=== PATIENT | male | born 1955 | race Caucasian/White ===

== ENCOUNTER 2016-05-16 05:44 | Outpatient (CLI) | payer OTHER ==
[~2016-05-16] VITALS: Ht 177.8 cm; Wt 86.2 kg
== END 2016-05-16 14:34 ==
LOC: PREOP 05:44
PROVIDERS: ATTEND Internal Medicine
DX: Z01.818 Encounter for other preprocedural examination (principal); Z12.11 Encounter for screening for malignant neoplasm of colon

== ENCOUNTER 2016-05-18 07:05 | Day surgery (SDC) | payer OTHER ==
[~2016-05-18] VITALS: Ht 177.8 cm; Wt 86.2 kg
[~2016-05-18 07:05] MED LIST: 1/2 NS IV SOLUTION 1,000 ML IV ONE
--- OUTSIDE RECORDS SUMMARY | 2016-05-18 07:09 | XMS REPORT | Continuity of Care Document ---
Author Author [facility] Organization [facility] Address Unknown Phone Unavailable Care Team Providers Care Membership Manager Name Role Phone ABRAHAM GREEN MD PCP Insurance Providers Payer Name Policy Number Subscriber Name Relationship [employer] [id number] Iain Kong S 18 Self / Same As Patient Advance Directives Directive Response Recorded Date/Time Advance Directives No 05/16/16 2:30pm Resuscitation Status Full Code 05/16/16 2:30pm Problems No problem information available. Medications No known medications. Social History Social History Problem Response Recorded Date/Time Alcohol Use Rarely Uses 05/16/2016 2:30pm Recreational Drug Use No 05/16/2016 2:30pm Recent Foreign Travel No 05/16/2016 2:30pm Recent Infectious Disease Exposure No 05/16/2016 2:30pm Smoking Status Never a Smoker 05/16/2016 2:30pm Recent Hopitalizations No 05/16/2016 2:30pm Query Response Start Date Stop Date Smoking Status Never a Smoker Hospital Discharge Instructions No hospital discharge instructions. Plan of Care Discharge Date 05/16/16 2:34pm Prescriptions See Medication Section Functional Status No functional status results. Allergies, Adverse Reactions, Alerts No known allergies. Immunizations No immunization records. Vital Signs Acute Vital Signs Vital Response Date/Time Height (Feet) 5 feet 05/16/2016 2:29pm Height (Inches) 10.00 inches 05/16/2016 2:29pm Height (Calculated Centimeters) 177.353902 cm 05/16/2016 2:29pm Weight (Pounds) 190 pounds 05/16/2016 2:29pm Weight (Ounces) 0.0 oz 05/16/2016 2:29pm Weight (Calculated Grams) 89183.55 gm 05/16/2016 2:29pm Weight (Calculated Kilograms) 86.302272 kilograms 05/16/2016 2:29pm Calculated BMI 27.3 05/16/2016 2:29pm Results No known relevant diagnostic tests, laboratory data and/or discharge summary. Procedures No known history of procedures. Encounters Encounter Location Arrival/Admit Date Discharge/Depart Date Attending Provider Registered Clinic [facility] 05/16/16 5:44am ABRAHAM GREEN MD
--- OUTSIDE RECORDS SUMMARY | 2016-05-18 07:09 | XMS REPORT | Continuity of Care Document ---
Author Author [facility] Organization [facility] Address Unknown Phone Unavailable Care Team Providers Care Zigzag Machine Operator Name Role Phone ABRAHAM GREEN MD PCP Insurance Providers Payer Name Policy Number Subscriber Name Relationship [employer] [id number] Iain Kong S 18 Self / Same [...] 10.00 inches 05/16/2016 2:29pm Height (Calculated Centimeters) 177.139587 cm 05/16/2016 2:29pm Weight (Pounds) 190 pounds 05/16/2016 2:29pm Weight (Ounces) 0.0 oz 05/16/2016 2:29pm Weight (Calculated Grams) 07075.55 gm 05/16/2016 2:29pm Weight (Calculated Kilograms) 86.912152 kilograms 05/16/2016 2:29pm Calculated BMI 27.3 05/16/2016 2:29pm Results No known relevant diagnostic tests, laboratory data and/or discharge summary. Procedures No known history of procedures. Encounters Encounter Location Arrival/Admit Date Discharge/Depart Date Attending Provider Registered Clinic [facility] 05/16/16 5:44am ABRAHAM GREEN MD
--- NOTE | 2016-05-18 07:29 | HISTORY AND PHYSICAL ---
DATE OF ADMISSION: 05/18/2016 DICTATING PHYSICIAN: Dr. Hurd COLONOSCOPY HISTORY AND PHYSICAL: Mr. Kong is a 60-year-old white male seen for follow-up of hyperlipidemia. He had been on Crestor for some time, but developed the onset of lower extremity fatigue and myalgia that persisted for several months and did not cease until he discontinue Crestor. His family history is pertinent for colon cancer in this case being his father diagnosed in his early 70s. It has been 5 years since his last screening colonoscopy at which time no abnormalities were noted. He reports that he is back to normal in regards to energy level and leg strength after discontinuing Crestor. PHYSICAL EXAMINATION: Reveals a well-appearing white male in no acute distress. VITAL SIGNS: Blood pressure was 132/80. CHEST: Clear. CV: Revealed a regular rate and rhythm without murmur, S3 or S4. ABDOMEN: Soft, supple without masses, organomegaly or tenderness. ASSESSMENT: Myalgia likely statin induced. We will have the patient return in 6 months for a PIM-1 and a PSA for screening purposes. I expect his cholesterol levels will be significantly elevated and we will discuss initiating pravastatin at that time if this turns out to be the case. He has no known history of atherosclerotic vascular disease, this is for primary prevention. The patient was set-up for screening colonoscopy deemed to be of higher than average risk due to a positive family history for colon cancer as noted above. He is set for the 18 May. Prep instructions with the [facility] prep kit were given and questions were answered. Job ID: [id number] Dictated Date: 04/19/2016 20:06:00 Nutrition Services Assistant Date: 04/20/2016 08:18:00/alisa DHILLON
[2016-05-18] MEDS ORDERED: 1/2 NS IV SOLUTION 1,000 ML IV STA (07:42)
[2016-05-18 07:44] VITALS: BP 145/107
[2016-05-18] MEDS ORDERED: LIDOCAINE JELLY 2% (XYLOCAINE) 5 ML TUBE MM PRN (07:45)
[2016-05-18] MEDS ORDERED: MIDAZOLAM 2 MG/2 ML (VERSED) VIAL IVP PRN (07:45)
[2016-05-18] MEDS ORDERED: NALOXONE 0.4 MG/ML 1 ML (NARCAN) VIAL IVP PRN (07:45)
[2016-05-18] MEDS ORDERED: FLUMAZENIL (ROMAZICON) 0.1 MG/ML 5 ML VIAL INJ PRN (07:45)
[2016-05-18] MEDS ORDERED: LIDOCAINE JELLY 2% (XYLOCAINE) 5 ML TUBE ONE (07:48)
[2016-05-18] MEDS ORDERED: fentaNYL INJECTION 100 MCG/2 ML AMP ONE (07:48)
[2016-05-18] MEDS ORDERED: MIDAZOLAM 2 MG/2 ML (VERSED) VIAL ONE ×2 (07:48)
--- NOTE | 2016-05-18 08:01 | Pre-Op Note & Conscious Sedat ---
Pre-Operative Progress Note H&P Reviewed The H&P was reviewed, patient examined and no changes noted. Date H&P Reviewed: May 18, 2016 Time H&P Reviewed: 07:50 Conscious Sedation Pre-Proced ASA Class: 2 Airway Mallampati Classification: (fort [place] appropriate class) I. II. III, IV Lungs Heart ASA score ASA 1: a normal healthy patient ASA 2: a patient with a mild systemic disease (mid diabetes, controlled hypertension, obesity ASA 3: a patient with a severe systemic disease that limits activity (angina , COPD, prior Myocardial infarction) ASA 4: a patient with an incapacitating disease that is a constant threat to life (CHF, renal failure) ASA 5: a moribund patient not expected to survive 24 hrs. (ruptured aneurysm) ASA 6: a declared brain patient whose organs are being harvested. For emergent operations, add the letter E after the classification Grade 2 Sedation Plan: Analgesia, Amnesia, Plan communicated to team members, Discussed options with patient/fam, Discussed risks with patient/fam Note The patient is an appropriate candidate to undergo the planned procedure, sedation, and anesthesia. The patient immediately re-assessed prior to indication. ABRAHAM GREEN MD May 18, 2016 08:01
[2016-05-18] MEDS: fentaNYL INJECTION 100 MCG/2 ML AMP IVP PRN ×2 (08:10→08:15)
[2016-05-18 08:40] VITALS: BP 131/87
[2016-05-18 09:10] VITALS: BP 162/101
[2016-05-18 09:30] VITALS: BP 162/101
--- NOTE | 2016-05-21 06:52 | PROCEDURE REPORT ---
PROCEDURE PHYSICIAN: ABRAHAM GREEN DATE OF PROCEDURE: 05/18/2016 SCREENING COLONOSCOPY: Deemed to be of higher than average risk due to family history of colon cancer in this case being his father. FINDINGS: The patient was placed in left lateral decubitus position. Prior to undergoing colonoscopy, digital rectal evaluation was performed. Anal sphincter tone was normal. The prostate was mild to moderately enlarged, anodular and nontender to digital inspection. No abnormalities were noted to digital inspection of the distal rectal vault. The colonoscope was then inserted into the rectum and under visualization, advanced to the cecum. The cecum was identified by identification of the ileocecal valve and cecal strap. Photographic documentation was obtained. Careful inspection was made as colonoscope was withdrawn. FINDINGS: There was no evidence for internal or external hemorrhoids. The patient does have one prominent perianal skin fold. The rectum was unremarkable. Several small sigmoid diverticulum were present without evidence for diverticulitis. Haustral hypertrophy was not noted. The descending colon, splenic flexure, transverse colon, hepatic flexure and ascending colon and cecum were unremarkable. ASSESSMENT: 1. Mild diverticular disease confined to the sigmoid colon was present. There is no evidence for diverticulitis. 2. Mild to moderate BPH was noted to digital inspection of the prostate. 3. No evidence for neoplasia on today's evaluation, will advocate consideration for repeat screening colonoscopy in 5 years considering family history. Sincerely, Job ID: [id number] Dictated Date: 05/18/2016 10:47:20 Coordinator Of Placement Date: 05/21/2016 06:48:47 / alisa
== END 2016-05-18 09:38 | disposition home or self-care (01) ==
LOC: SDC 07:05
PROVIDERS: ATTEND Internal Medicine
DX: Z12.11 Encounter for screening for malignant neoplasm of colon (principal); Z80.0 Family history of malignant neoplasm of digestive organs; K57.30 Diverticulosis of large intestine without perforation or abscess without bleeding; N40.0 Benign prostatic hyperplasia without lower urinary tract symptoms

== ENCOUNTER → 2016-10-05 | Outpatient (CLI) | payer OTHER ==
--- NOTE | 2016-10-05 15:08 | Diagnostic Imaging Report ---
PROCEDURE: MRI lumbar spine. TECHNIQUE: Multiplanar, multisequence MRI of the lumbar spine was performed without contrast. INDICATION: Bilateral hip pain. COMPARISON: None. FINDINGS: For the purposes of this exam, last well-formed disc space is denoted the L5-S1 level. Static alignment is maintained. There is no significant anterolisthesis or retrolisthesis. There is no evidence of jumped facets. Vertebral body heights are maintained. There is no evidence of acute fracture. Evaluation of the marrow signal demonstrates hemangioma within the L1 vertebral body. Otherwise, marrow signal is unremarkable. There is intervertebral disc height loss, greatest at the L4-L5 and L5-S1 levels. Visualized portions of the distal cord are unremarkable. Conus terminates at approximately the L1-L2 level. No abnormal intrathecal filling defects are seen. Pre and paravertebral soft tissue structures are unremarkable. Axial images demonstrate the following: T12-L1 through L3-L4: There is no large disc bulge or focal protrusion. There is no significant spinal canal or neuroforaminal stenosis. L4-L5: There is mild broad-based posterior disc bulge, slightly eccentric to the right. This results in minimal effacement of the anterior thecal sac and narrowing of the bilateral neuroforamen. L5-S1: Bilateral posterior disc bulges are identified. As a result, there is mild narrowing of the bilateral neuroforamen. Spinal canal is unremarkable. IMPRESSION: 1. Minimal degenerative changes at the L4-L5 and L5-S1 levels, but no significant spinal canal or neuroforaminal stenosis throughout. 2. No acute fracture or dislocation of the lumbar spine. Dictated by: Dictated on workstation # [id number]
== END ==
LOC: RAD 13:44
PROVIDERS: ATTEND Internal Medicine
DX: M25.551 Pain in right hip (principal); M25.552 Pain in left hip; R20.2 Paresthesia of skin
CPT/HCPCS: 72148

== ENCOUNTER → 2017-09-26 | Outpatient (CLI) | payer OTHER ==
--- NOTE | 2017-09-26 16:42 | Diagnostic Imaging Report ---
PROCEDURE: MRI left upper extremity without contrast. TECHNIQUE: Multiplanar, multisequence MR imaging of the left shoulder was performed without contrast. COMPARISON: None available. INDICATION: Left shoulder pain with limited range of motion. FINDINGS: Rotator cuff: No rotator cuff tear. No rotator cuff muscle atrophy or denervation injury. Glenoid labrum: By non-arthrogram imaging, the glenoid labrum appears intact. No para-labral cyst. Long head of biceps: Long head of biceps is normally positioned within the bicipital groove. The intracapsular segment is intact. Bones and cartilage: Humeral head is normal in morphology without fracture or focal osseous lesion. Multiple foci of full-thickness chondral loss with underlying subchondral cysts present in the inferior aspect of the glenoid. Mild hypertrophic degenerative changes of the acromioclavicular joint. Soft tissues: Siobv-yz-oduzdoci glenohumeral joint effusion is present with mild synovitis. No MRI findings to suggest adhesive capsulitis. No fluid or inflammatory like signal within the subacromial/subdeltoid space to indicate bursitis. IMPRESSION: 1. Fnquk-ts-fltnaqdj glenohumeral joint effusion with mild synovitis. This may be reactive in nature due to degenerative joint disease, but an inflammatory or crystalline arthropathy could give this appearance. Consider arthrocentesis for further characterization of the joint fluid. 2. No rotator cuff tear. 3. Multiple areas of full-thickness articular cartilage loss in the glenoid. 4. Long head of biceps is normal. Dictated by: Dictated on workstation # [id number]
== END ==
LOC: RAD 14:59
PROVIDERS: ATTEND Nurse Practitioner
DX: M19.012 Primary osteoarthritis, left shoulder (principal); M75.112 Incomplete rotator cuff tear or rupture of left shoulder, not specified as traumatic; M24.112 Other articular cartilage disorders, left shoulder; M65.812 Other synovitis and tenosynovitis, left shoulder
CPT/HCPCS: 73221

== ENCOUNTER 2020-06-08 05:30 | Outpatient (RCR) | payer MEDICARE, OTHER ==
[~2020-06-08] VITALS: Ht 178 cm; Wt 91.0 kg
== END 2020-06-08 10:05 | disposition home or self-care (01) ==
LOC: PREOP 05:30
PROVIDERS: ATTEND Internal Medicine
DX: Z01.812 Encounter for preprocedural laboratory examination (principal); R10.13 Epigastric pain; Z80.0 Family history of malignant neoplasm of digestive organs; Z20.822 Contact with and (suspected) exposure to COVID-19
CPT/HCPCS: 87635

== ENCOUNTER 2020-06-10 08:51 | Day surgery (SDC) | payer MEDICARE, OTHER ==
--- NOTE | 2020-06-08 15:40 | HISTORY AND PHYSICAL ---
DATE OF SERVICE: EGD AND COLONOSCOPY H AND P DATE OF ADMISSION: 06/10/2020. HISTORY OF PRESENT ILLNESS: The patient is a 64-year-old white male, who reports increased leg pain 2 to 3 months ago. At that time, he stopped omeprazole as well as Crestor that he was taking for hyperlipidemia and his reflux. He has put on some weights and despite taking twice a day Pepcid has been having increased in epigastric pain radiating up into his chest. It is worse an hour or 2 after meals and also worse at night if he eats anything after 5. He generally goes to bed around 9:30. He occasionally will wake up choking at night with worsening heartburn and will have to sleep in his recliner. He does get benefit from antacid therapy. By our office scales, his weight was up marginally about 1.5 pounds. He denied melena or bright red blood per rectum. He has a little over 4 years out from his last colonoscopy with a past history of colon polyps and a family history of colon cancer, index case being his father diagnosed in his 60s. PAST MEDICAL HISTORY: Significant for hyperlipidemia with no known history of coronary artery disease. MEDICATIONS: Other than Pepcid, he is on some gabapentin that he has taken for some radicular pain and it also helps him sleep at nights with low dose 100 mg at bedtime. PHYSICAL EXAMINATION: GENERAL: Reveals an anxious white male, otherwise in no acute distress. VITAL SIGNS: Initial blood pressure 148/110. At the end of the interview 130/92. HEENT: Oral cavity clear. CHEST: Clear. CARDIOVASCULAR: Regular rate and rhythm without murmur, S3 or S4. ABDOMEN: Soft, supple. Mild epigastric discomfort to palpation without rebound or guarding. Bowel sounds positive. No mass or organomegaly noted. EXTREMITIES: Reveal no cyanosis, clubbing or edema. ASSESSMENT AND PLAN: The patient was set up for diagnostic EGD due to epigastric pain and refractory reflux symptoms with likely recommendation to return to proton pump inhibitor therapy. Post-endoscopy pending findings. He will be undergoing surveillance colonoscopy due to past history of adenomatous colonic polyps in addition to family history of colon cancer. Prep instructions and Suprep kit were given and questions were answered. The patient was set up for 06/10/2020. Job ID: [id number] DocumentID: [id number] Dictated Date: 06/08/2020 15:22:26 Investigation Specialist Date: 06/08/2020 15:40:01 Dictated By: ABRAHAM GREEN MD
[2020-06-10] VITALS (14 sets, daily range): BP systolic 132–180; BP diastolic 95–120
[~2020-06-10] VITALS: Ht 178 cm; Wt 91.0 kg
[2020-06-10] MEDS ORDERED: D5 LR IV SOLUTION 1,000 ML IV STA (09:06)
[2020-06-10] MEDS ORDERED: D5 LR IV SOLUTION 1,000 ML IV ONE (09:09)
[2020-06-10] MEDS ORDERED: LACTATED RINGERS 0 ML IV ONE (09:09)
[2020-06-10] MEDS ORDERED: LIDOCAINE JELLY 2% 6 ML SYRINGE MM PRN (09:15)
[2020-06-10] MEDS ORDERED: fentaNYL INJECTION 100 MCG/2 ML AMP IVP ONE (09:15)
[2020-06-10] MEDS ORDERED: HURRICAINE EXT TUBE (BENZOCAINE) XX PRN (09:15)
[2020-06-10] MEDS ORDERED: MIDAZOLAM 5 MG/5 ML (VERSED) VIAL IV ONE (09:15)
[2020-06-10] MEDS ORDERED: LIDOCAINE JELLY 2% 6 ML SYRINGE ONE (09:44)
[2020-06-10] MEDS ORDERED: MIDAZOLAM 5 MG/5 ML (VERSED) VIAL ONE ×2 (09:45)
[2020-06-10] MEDS ORDERED: HURRICAINE EXT TUBE (BENZOCAINE) ONE (09:45)
[2020-06-10] MEDS ORDERED: fentaNYL INJECTION 100 MCG/2 ML AMP ONE ×2 (09:45)
--- NOTE | 2020-06-10 10:14 | Pre-Op Note & Conscious Sedat ---
Pre-Operative Progress Note H&P Reviewed The H&P was reviewed, patient examined and no changes noted. Date H&P Reviewed: Jun 10, 2020 Time H&P Reviewed: 09:30 Conscious Sedation Pre-Proced ASA Score 2 For ASA 3 and 4: Consider anesthesia and medical clearance. Also, for patients with a history of failed moderate sedation consider anesthesia. Airway Lungs Heart ASA score ASA 1: a normal healthy patient ASA 2: a patient with a mild systemic disease (mid diabetes, controlled hypertension, obesity ASA 3: a patient with a severe systemic disease that limits activity (angina, COPD, prior Myocardial infarction) ASA 4: a patient with an incapacitating disease that is a constant threat to life (CHF, renal failure) ASA 5: a moribund patient not expected to survive 24 hrs. (ruptured aneurysm) ASA 6: a declared brain- patient whose organs are being harvested. For emergent operations, add the letter E after the classification Mallampati Classification Grade 2 Sedation Plan Analgesia, Amnesia, Plan communicated to team members, Discussed options with patient/fam, Discussed risks with patient/fam The patient is an appropriate candidate to undergo the planned procedure, sedation, and anesthesia. The patient immediately re-assessed prior to indication. ABRAHAM GREEN MD Jun 10, 2020 10:14
--- NOTE | 2020-06-10 14:51 | OPERATIVE REPORT ---
DATE OF SERVICE: PANENDOSCOPY SUMMARY EGD was performed for evaluation of reflux with dysphagia. Colonoscopy was performed due to past history of colon polyps and family history for colon cancer. The patient was placed in the left lateral decubitus position. The upper endoscope was inserted in the oral cavity and under direct visualization, esophagus was intubated. Endoscope was passed down the esophagus through the stomach and second portion of the duodenum. Careful inspection was made as the colonoscope was withdrawn. The patient tolerated the procedure well. FINDINGS: The posterior pharynx, epiglottis, true and false vocal folds and arytenoid aperture were unremarkable with no evidence for erythema. Proximal and mid esophagus were unremarkable. The patient does have approximate 2 cm hiatal hernia. 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 There was no evidence for ulceration. No gross evidence to suggest malignancy. Four quadrant biopsies were obtained from just above the estimated GE junction, which was 34 cm from the incisor orifice; therefore, biopsies from 32 cm four quadrant. The cardia, fundus, antrum, pylorus, pyloric channel, duodenal bulb and second portion of duodenum were unremarkable. ASSESSMENT: Small to moderate size hiatal hernia was present without evidence for upper tract obstruction. Findings did suggest short segment Whiting's, approximately 2 cm of involvement with eight biopsies from 2 levels, four quadrants being obtained. No ulceration was noted. No obvious evidence for malignancy noted. We will await histopathology report before making recommendation for future surveillance EGD. The patient was advised to resume omeprazole. We then proceeded with colonoscopy. Prior to undergoing colonoscopy, digital rectal evaluation was performed. Anal sphincter tone was normal and the perianal reflexes intact. There was no evidence for internal or external hemorrhoids. Prostate is mildly enlarged, anodular and nontender to digital inspection. No other abnormalities were noted on digital inspection of the anal canal or distal rectal vault. The colonoscope was then inserted into the rectum and under direct visualization advanced to cecum. The cecum was identified by identification of ileocecal valve and cecal strap. Photographic documentation was obtained. A careful inspection was made as colonoscope was withdrawn. The patient tolerated the procedure well. The quality of prep was good. There was no evidence for internal or external hemorrhoids and the rectum was unremarkable. Present in the mid and proximal sigmoid diverticulum were a moderate number of small to medium size diverticulum without evidence for diverticulitis. No other sigmoid colonic abnormalities were appreciated. Present in the proximal descending colon was a diminutive 3 mm sessile polyp. It was photographed and biopsied and ablated and submitted for histopathology. The splenic flexure, transverse colon, hepatic flexure, ascending colon and cecum were unremarkable. ASSESSMENT AND PLAN: One diminutive polyp was removed from the proximal descending colon. As long as there are no surprise on histopathology report considering family history, we will advocate repeat surveillance colonoscopy in 5 years. Job ID: [id number] DocumentID: [id number] Dictated Date: 06/10/2020 11:28:13 Chocolate Production Machine Operator Date: 06/10/2020 14:50:40 Dictated By: ABRAHAM GREEN MD MTDD
== END 2020-06-10 11:50 | disposition home or self-care (01) ==
LOC: ENDO 08:51
PROVIDERS: ATTEND Internal Medicine
DX: D12.4 Benign neoplasm of descending colon (principal); K29.50 Unspecified chronic gastritis without bleeding; K21.00 Gastro-esophageal reflux disease with esophagitis, without bleeding; K44.9 Diaphragmatic hernia without obstruction or gangrene; K57.30 Diverticulosis of large intestine without perforation or abscess without bleeding; E78.5 Hyperlipidemia, unspecified; Z79.899 Other long term (current) drug therapy; Z86.010 Personal history of colon polyps; Z80.0 Family history of malignant neoplasm of digestive organs
CPT/HCPCS: 88305; 88312

== ENCOUNTER 2021-11-01 05:30 | Outpatient (CLI) | payer MEDICARE, OTHER ==
[~2021-11-01] VITALS: Ht 177 cm; Wt 92.5 kg
[2021-11-01] MEDS ORDERED: ATOR20TA49 PO (15:35)
== END 2021-11-01 15:45 | disposition home or self-care (01) ==
LOC: PREOP 05:30
PROVIDERS: ATTEND Surgery
DX: Z01.818 Encounter for other preprocedural examination (principal)

== ENCOUNTER 2021-11-08 07:51 | Day surgery (SDC) | payer MEDICARE, OTHER ==
[~2021-11-08] VITALS: Ht 177 cm; Wt 92.5 kg
[2021-11-08] VITALS (11 sets, daily range): BP systolic 91–154; BP diastolic 64–106
[~2021-11-08 07:51] MED LIST changes: -1/2 NS IV SOLUTION 1,000 ML IV ONE; +ATOR20TA49 PO
[2021-11-08] MEDS ORDERED: LACTATED RINGERS 1,000 ML IV PRN (08:15)
[2021-11-08] MEDS ORDERED: ceFAZolin 2 GM IV Premixed 50 ML IV ONE (08:15)
[2021-11-08] MEDS ORDERED: LIDOCAINE PF 2% 5 ML (XYLOCAINE) VIAL ONE (08:34)
[2021-11-08] MEDS ORDERED: proPOfol 200 MG/20 ML (DIPRIVAN) VIAL IV ONE (08:34)
[2021-11-08] MEDS ORDERED: SEVOFLURANE (ULTANE) 15 ML INHAL SOLN ONE (08:34)
[2021-11-08] MEDS ORDERED: ONDANSETRON 4 MG/2 ML (SDV) Z0FRAN ONE (08:34)
[2021-11-08] MEDS ORDERED: fentaNYL INJ 100 MCG/2 ML AMP ONE (08:35)
--- NOTE | 2021-11-08 08:43 | Progress Note-Pre Operative ---
Pre-Operative Progress Note H&P Reviewed The H&P was reviewed, patient examined and no changes noted. Time Seen by Provider: 08:41 Date H&P Reviewed: Nov 08, 2021 Time H&P Reviewed: 08:41 Pre-Operative Diagnosis: Mass under right eye KEVIN PEÑALOZA DO Nov 08, 2021 08:43
[2021-11-08] MEDS ORDERED: LIDOCAINE/EPI 2% 1:200,00 (XYLOCAINE) 20 ML VIAL ONE (08:46)
[2021-11-08] MEDS ORDERED: NEO/POLY/BACI (NEOSPORIN) OPHTH OINT 3.5 GM ONE (09:21)
[2021-11-08] MEDS ORDERED: GLYCOPYRROLATE 0.2 MG/ML (ROBINUL) 2 ML VIAL ONE (09:24)
[2021-11-08] MEDS ORDERED: LACRI-LUBE OPTHALMIC OINT 3.5 GM TUBE ONE (09:26)
--- NOTE | 2021-11-08 09:28 | Progress Note-Post Operative ---
Post-Operative Progess Note Surgeon (s)/Workers Compensation Adjuster (s) Surgeon KEVIN PEÑALOZA DO Workers Compensation Adjuster: none Pre-Operative Diagnosis Mass under right eye Post-Operative Diagnosis same pending path Procedure & Operative Findings Date of Procedure 11/08/21 Procedure Performed/Findings Excision of mass under right eye, 2.2 x 0.6cm Anesthesia Type LMA Estimated Blood Loss Estimated blood loss (mL): less than 5ml Specimens/Packing Specimens Removed mass under right eye and surrounding skin KEVIN PEÑALOZA DO Nov 08, 2021 09:28
--- NOTE | 2021-11-08 09:29 | Discharge Inst-Surgical ---
Discharge Inst-Surgical Depart Medication/Instructions New, Converted or Re-Newed RX: Other (use home meds for pain) Patient Instructions Follow up Appt: Make appointment for 1 week. [phone] Instructions: May shower in 24 hours, no tub bath or soaking. Use incentive spirometer at home as directed. No Smoking Skin/Wound Care: May remove bandages in am. You need to leave the Dermabond on incision it will fall off on it's own. Symptoms to Report: Appetite Changes, Extremity Discoloration, Numbness/Tingling, Swelling Increased, Bleeding Excessive, Eyesight Changes, Pain Increased, Urine Color Change, Constipation(Persistent), Fever over 101 degree F, Pain/Pressure in chest, Urinating Difficulty, Cough Up/Vomit Blood, Heart Beat Irreg/Pounding, Pain/Pressure in jaw, Cramps in feet or legs, Lightheadedness, Pain/Pressure in shoulder, Diarrhea(Persistent), Memory Changes Suddenly, Questions/Concerns, Weight gain consecutive days, Dizziness/Fainting, Nausea/Vomiting, Shortness of Breath, Weight gain over 2 pounds If questions or concerns contact your physician Or seek help at emergency department. Activity Activity as Tolerated: Yes Activity Instructions: Avoid Stress to Incision Driving Instructions: No Driving for 24 Hours Diet Discharge Diet: No Restrictions Diet After 24 Hours: Clear Liquid if Nauseous If Any Problems/Questions/Issu: Contact Your Physician, Go to Emergency Room Skin/Wound Care Infection Signs and Symptoms: Increased Redness, Foul Odor of Wound, Increased Drainage, Skin Itchy or Has a Rash, Increased Swelling, Temperature Above 101 F Bathing Instructions: Shower Stitches/[place]/Dermabond Dis: KEVIN Tripp DO Nov 08, 2021 09:29
[2021-11-08] MEDS ORDERED: ONDANSETRON 4 MG/2 ML (SDV) Z0FRAN IVP PRN (09:45)
--- NOTE | 2021-11-08 13:38 | Anesthesia-General Post-Op ---
General Patient Condition Mental Status/LOC: Same as Preop Cardiovascular: Satisfactory Nausea/Vomiting: Absent Respiratory: Satisfactory Pain: Controlled Complications: Absent Post Op Complications Complications None Follow Up Care/Instructions Patient Instructions None needed. Anesthesia/Patient Condition Patient Condition Patient is doing well, no complaints, stable vital signs, no apparent adverse anesthesia problems. No complications reported per nursing. [place] [facility] [place]: Yes SAVANA RAMIRES STOCK BROKER Nov 08, 2021 13:38
--- NOTE | 2021-11-09 04:04 | OPERATIVE REPORT ---
DATE OF SERVICE: 11/08/2021 PREOPERATIVE DIAGNOSES: Mass under the right eye. POSTOPERATIVE DIAGNOSES: Mass under the right eye, pending pathology. PROCEDURE: Excision of mass on the right eye, 2.2 x 0.6 cm incision. SURGEON: Isidro Adams DO BRAKE LINER: None. ANESTHESIA: LMA. SPECIMEN: Mass under the right eye. BLOOD LOSS: Scant. FLUIDS: Per anesthesia. POSTOPERATIVE CONDITION: Stable. INDICATION FOR PROCEDURE: The patient is a 66-year-old male who has a mass under his right eye. It looked like could be a basal cell. It has been getting bigger. It is bothering him and he wanted to get it removed. FINDINGS: The patient had a mass on the skin under the right eye removed with a semilunar incision. PROCEDURE NOTE: After informed consent was obtained, the patient was brought to the operating room, placed on the operating table in supine position, sterilely prepped and draped in normal fashion. Local lidocaine was used to infiltrate the skin under and around this mass, it was right under the eye just below the eyelid, elected to make a semilunar incision, did this to hide incision in skin, infiltrated the area with local, made an incision with #15 blade, carried down through skin into subcutaneous tissue. It measured about 2.2 cm long x about 0.6 cm wide, removed this, sutured once at the 3 o'clock position as a marking stitch and passed off table and sent to pathology. Hemostasis obtained using Bovie electrocautery. I then elected to close this with 5-0 Vicryl. Three interrupted stitches to close this, it closed nicely. The area was cleaned and dried. Skin Affix was placed. The patient tolerated the procedure and transferred to recovery room in stable condition. Sponge, instrument and needle count correct at the end of the case. Job ID: [id number] DocumentID: [id number] Dictated Date: 11/08/2021 21:44:31 [employer] Operations Intern Date: 11/09/2021 04:03:29 Dictated By: ISIDRO ADAMS DO [facility]
== END 2021-11-08 11:45 | disposition home or self-care (01) ==
LOC: SDC 07:51
PROVIDERS: ATTEND Surgery
DX: C44.319 Basal cell carcinoma of skin of other parts of face (principal)
CPT/HCPCS: 87081

== ENCOUNTER → 2022-09-06 | Outpatient (CLI) | payer MEDICARE, OTHER | LOC: CARD 11:18 | PROVIDERS: ATTEND Internal Medicine | DX: R07.9 Chest pain, unspecified (principal); Z86.39 Personal history of other endocrine, nutritional and metabolic disease | CPT/HCPCS: 36415; 84484; 93005 ==